=== PATIENT | male | born 1970 | race Caucasian/White ===

== ENCOUNTER 2019-09-08 23:34 | Emergency (ER) | payer MEDICARE, MEDICAID ==
[~2019-09-08] VITALS: Ht 177.8 cm; Wt 84.0 kg
[~2019-09-08 23:34] MED LIST: HYDR-4383 PO
[2019-09-08 23:36] VITALS: BP 150/102
[2019-09-09] MEDS ORDERED: HYDROcodone/acetaminophen 10/325mg tab PO ONE (00:10)
[2019-09-09] MEDS ORDERED: ketorolac trometh inj. 60 MG/2 ML VIAL IM ONE (00:10)
== END 2019-09-09 00:45 | disposition home or self-care (01) ==
LOC: ER 23:35
DX: M54.31 Sciatica, right side (principal); M25.551 Pain in right hip; Z79.899 Other long term (current) drug therapy
CPT/HCPCS: 99283; J1885; 96372

== ENCOUNTER 2022-08-09 11:33 | Emergency (ER) | payer MEDICARE, MEDICAID ==
[~2022-08-09] VITALS: Ht 177.8 cm; Wt 82.0 kg
[2022-08-09 11:57] VITALS: BP 130/88
== END 2022-08-09 16:01 | disposition home or self-care (01) ==
LOC: ER 11:34
DX: S91.101A Unspecified open wound of right great toe without damage to nail, initial encounter (principal); G60.9 Hereditary and idiopathic neuropathy, unspecified; E11.621 Type 2 diabetes mellitus with foot ulcer; Z79.899 Other long term (current) drug therapy; X58.XXXA Exposure to other specified factors, initial encounter; Y93.89 Activity, other specified; Y92.89 Other specified places as the place of occurrence of the external cause; Y99.8 Other external cause status
CPT/HCPCS: 99283; L4360; 99281; A6258

== ENCOUNTER 2024-06-24 00:54 | Emergency (ER) | payer MEDICARE, MEDICAID ==
[~2024-06-24] VITALS: Ht 177.8 cm; Wt 86.8 kg
[2024-06-24] MEDS ORDERED: SULF1TAB49 PO (02:43)
[2024-06-24] MEDS ORDERED: CEPH-585 PO (02:43)
[2024-06-24] MEDS: cephalexin 500mg capsule PO ONE (02:48)
[2024-06-24] MEDS: sulfamethoxazole/trimethoprim DS (800/160mg) tablet PO ONE (02:48)
[2024-06-24 02:49] VITALS: BP 134/78; PULSE 85; RESP 14; TEMP 98.2; O2SAT 98
== END 2024-06-24 02:53 | disposition home or self-care (01) ==
LOC: ER 00:55
DX: L03.031 Cellulitis of right toe (principal); M79.674 Pain in right toe(s); M79.89 Other specified soft tissue disorders; E11.69 Type 2 diabetes mellitus with other specified complication; Z79.899 Other long term (current) drug therapy
CPT/HCPCS: 99283; A6222; A6402